=== PATIENT | female | born 1995 | race Caucasian/White ===

== ENCOUNTER 2018-12-24 15:38 | Outpatient (CLI) | payer OTHER | END 2018-12-24 18:59 | disposition home or self-care (01) | LOC: OBT 15:38 → L-D 15:39 → OBT 15:42 → L-D 15:42 → OBT 18:59 | DX: O75.89 Other specified complications of labor and delivery (principal); Z3A.38 38 weeks gestation of pregnancy | CPT/HCPCS: 76818 ==

== ENCOUNTER 2018-12-27 23:45 | Inpatient (IN) | payer OTHER ==
[2018-12-28] MEDS ORDERED: OXYCODONE/ACETAMINOPHEN (5/325) TAB PO (00:30)
[2018-12-28] MEDS ORDERED: IBUPROFEN 600 MG TAB PO (00:30)
[2018-12-28] MEDS ORDERED: CARBOPROST 250 MCG INJ IM ×2 (00:30→20:30)
[2018-12-28] MEDS ORDERED: METHYLERGONOVINE 0.2 MG INJ IM ×2 (00:30→20:30)
[2018-12-28] MEDS ORDERED: OXYTOCIN 30 UNITS/LR 500 ML IV ×2 (00:30→20:30)
[2018-12-28] MEDS ORDERED: MISOPROSTOL 200 MCG TAB PR ×2 (00:30→20:30)
[2018-12-28] MEDS ORDERED: BUTORPHANOL 2 MG INJ IV (00:30)
[2018-12-28] MEDS: LACTATED RINGER'S 1,000 ML IV ×4 (00:54→19:01)
[2018-12-28 01:05] LABS: ADD MAN DIFF? NO
[2018-12-28 01:11] LABS: WHITE BLOOD COUNT 10.4 10^3/ul (4.8-10.8)
[2018-12-28 01:11] LABS: BASOPHILS % 0.3 % (0.0-2.0); EOSINOPHILS # 0.1 10^3/ul (0.0-0.5); EOSINOPHILS % 1.3 % (0.0-7.0); HEMATOCRIT 31.9 % (37.0-47.0); HEMOGLOBIN 10.9 g/dl (12.0-16.0); LYMPHOCYTES # 3.1 10^3/ul (0.8-2.9); LYMPHOCYTES % 29.2 % (15.0-51.0); MEAN CORPUSCULAR HEMOGLOBIN 29.8 pg (29.0-33.0); MEAN CORPUSCULAR HGB CONC 34.2 g/dl (32.0-37.0); MEAN CORPUSCULAR VOLUME 87.2 fl (82.0-101.0); MONOCYTE # 0.6 10^3/ul (0.3-0.9); NEUTROPHIL # 6.5 10^3/ul (1.6-7.5); NEUTROPHILS % 62.5 % (39.0-77.0); PLATELET COUNT 265 10^3/UL (140-415); RED BLOOD COUNT 3.66 10^6/ul (4.20-5.40); RED CELL DISTRIBUTION WIDTH 12.6 % (11.5-14.5)
[2018-12-28 01:44] LABS: INR 0.89; PROTIME 12.2 Sec (11.9-14.9)
[2018-12-28 01:45] LABS: PARTIAL THROMBOPLASTIN TIME 27.1 Sec (23.0-35.0)
[2018-12-28 04:10] LABS: HEPATITIS B SURFACE ANTIGEN NEGATIVE (NEGATIVE)
[2018-12-28] MEDS: OXYTOCIN 30 UNITS/LR 500 ML IV ×3 (07:43→20:05)
[2018-12-28] MEDS ORDERED: FENTAnyl 2MCG/ML-ROPIV 0.2% 100 ML (07:53)
[2018-12-28] MEDS ORDERED: NALOXONE (0.4 MG/ML) INJ IV (08:00)
[2018-12-28] MEDS ORDERED: ONDANSETRON 4 MG INJ IV (08:00)
[2018-12-28] MEDS ORDERED: DIPHENHYDRAMINE 50 MG INJ IV (08:00)
[2018-12-28] MEDS: FENTAnyl 2MCG/ML-ROPIV 0.2% 100 ML BAG EPI (15:11)
[2018-12-28] MEDS: DEXTROSE 5%-LR 1,000 ML IV (15:15)
[2018-12-28] MEDS: LIDOCAINE 1% (MPF) 30 ML INJ INJ (19:48)
[2018-12-28] MEDS: IBUPROFEN 600 MG TAB PO (21:11)
[2018-12-28 21:12] LABS: RAPID PLASMA REAGIN NONREACTIVE (NR)
[2018-12-28] MEDS: LACTATED RINGER'S 1,000 ML IV* (22:04)
[2018-12-28] MEDS: MINERAL OIL LIGHT 10 ML VIAL TOP (22:04)
[2018-12-28] MEDS: BENZOCAINE 20% 56 ML SPRAY TOP (23:40)
[2018-12-28] MEDS: LANOLIN HPA 1 PKT TOP (23:40)
[2018-12-29] MEDS: OXYTOCIN 30 UNITS/LR 500 ML IV (00:09)
[2018-12-29] MEDS: LACTATED RINGER'S 1,000 ML IV* (04:04)
[2018-12-29] MEDS: IBUPROFEN 600 MG TAB PO ×5 (05:43→23:46)
[2018-12-29 06:51] LABS: ADD MAN DIFF? NO
[2018-12-29 06:59] LABS: BASOPHILS % 0.2 % (0.0-2.0); EOSINOPHILS # 0.1 10^3/ul (0.0-0.5); EOSINOPHILS % 0.6 % (0.0-7.0); HEMATOCRIT 27.9 % (37.0-47.0); HEMOGLOBIN 9.4 g/dl (12.0-16.0); LYMPHOCYTES # 2.6 10^3/ul (0.8-2.9); LYMPHOCYTES % 15.4 % (15.0-51.0); MEAN CORPUSCULAR HEMOGLOBIN 29.3 pg (29.0-33.0); MEAN CORPUSCULAR HGB CONC 33.7 g/dl (32.0-37.0); MEAN CORPUSCULAR VOLUME 86.9 fl (82.0-101.0); MEAN PLATELET VOLUME 10.7 fl (7.4-10.4); MONOCYTES % 6.2 % (0.0-11.0); NEUTROPHIL # 12.8 10^3/ul (1.6-7.5); NEUTROPHILS % 77.2 % (39.0-77.0); PLATELET COUNT 219 10^3/UL (140-415); RED BLOOD COUNT 3.21 10^6/ul (4.20-5.40); RED CELL DISTRIBUTION WIDTH 12.8 % (11.5-14.5)
[2018-12-29 06:59] LABS: WHITE BLOOD COUNT 16.7 10^3/ul (4.8-10.8)
[2018-12-29] MEDS: BENZOCAINE 20% 56 ML SPRAY TOP (11:33)
[2018-12-29] MEDS: HYDROCODONE/APAP (5/325) TAB PO (22:01)
[2018-12-30] MEDS: IBUPROFEN 600 MG TAB PO ×2 (05:20→11:50)
[2018-12-30] MEDS: DIPHTH/TET/ACEL PERTUSS (ADULT) 0.5 ML VIAL IM* (09:00)
== END 2018-12-30 13:00 | disposition home or self-care (01) | DRG 807 ==
LOC: OBT 23:45 → L-D 23:47 → PP1 12-28 21:41
PROVIDERS: Specialist
PROC: 10E0XZZ Delivery of Products of Conception, External Approach (ICD-10-PCS; principal; 2018-12-28)
PROC: 0HQ9XZZ Repair Perineum Skin, External Approach (ICD-10-PCS; 2018-12-28)
DX: O70.0 First degree perineal laceration during delivery (principal); Z37.0 Single live birth; Z3A.38 38 weeks gestation of pregnancy
CPT/HCPCS: 85025; 85610; 85730; 86592; 86850; 86900; 86901; 87340